=== PATIENT | female | born 1975 | race Caucasian/White ===

== ENCOUNTER 2020-08-28 08:13 | Emergency (ER) | payer OTHER, MEDICAID ==
[~2020-08-28] VITALS: Ht 152.4 cm; Wt 56.7 kg
[2020-08-28 08:22] VITALS: BP 113/78
[2020-08-28] MEDS ORDERED: BACTRIM DS TAB1 EAC1 PO (08:34)
== END 2020-08-28 08:47 | disposition home or self-care (01) ==
LOC: M.ERS 08:13
DX: L03.113 Cellulitis of right upper limb (principal)